=== PATIENT | female | born 1970 | race Asian ===

== ENCOUNTER 2017-08-21 20:10 | Emergency (ER) | payer OTHER ==
[~2017-08-21] VITALS: Ht 167.6 cm; Wt 113.4 kg
== END 2017-08-21 21:00 | disposition home or self-care (01) ==
LOC: FSED 20:10
DX: M79.1 Myalgia (principal); M62.838 Other muscle spasm; I10 Essential (primary) hypertension; J45.909 Unspecified asthma, uncomplicated
CPT/HCPCS: 99283